=== PATIENT | female | born 1985 | race Caucasian/White ===

== ENCOUNTER 2025-02-24 21:37 | Inpatient (IN) | payer OTHER, SELFPAY ==
[2025-02-24 18:03] VITALS: BP 143/85
--- NOTE | 2025-02-24 18:41 | ED.GENMED ---
History of Present Illness
<Akiko Mcnamara PA-C - Last Filed: 02/25/25 01:11>
General
Chief Complaint: Skin Problem
Source: patient
Exam Limitations: none
Time Seen by Provider: 02/24/25 18:16
History of Present Illness
History of Present Illness:
39yoF with no significant past medical history presenting for evaluation of right thigh redness. Patient noticed what appeared to be an ingrown hair in her right inner thigh 4 days ago. She was seen at urgent care 3 days ago and was diagnosed with
a spider bite and started on Bactrim and Medrol dose pack. She has taken 5 doses of antibiotics thus far. Patient noticed some spreading redness today and went back to urgent care. She had blood work at [facility] and white count was 12 so she
was sent to the ED. She had some chills earlier today but has been monitoring her temperature and has not had a fever. No history of MRSA.
Phy Exam
<Akiko Mcnamara PA-C - Last Filed: 02/25/25 01:11>
General Physical Exam
General Presentation: well appearing and no apparent distress
General Skin: warm and dry
General Habitus: normal
General Mental: alert
ENT Exam
ENT Exam: normocephalic
Pulmonary Exam
Pulmonary Exam: no respiratory distress
Neurological Exam
Neurological Exam: alert
[place] Coma Scale
Eye Opening: Spontaneous
Verbal Response: Oriented
Motor Response: Obeys Commands
GCS Total Score: 15
Skin Exam
Skin Exam: redness, warmth and other (Large circular area of erythema/warmth to R inner thigh. There is a central indurated area with tenderness. No crepitus or pain out of proportion. )
Psychiatric Exam
Psychiatric Exam: normal mood/affect
<Fidelia Capellan MD - Last Filed: 02/24/25 22:09>
Amie Coma Scale
GCS Total Score: 15
Course
<Akiko Mcnamara PA-C - Last Filed: 02/25/25 01:11>
Orders/Labs/Results
Orders:
Orders
02/24/25 Dinner
Regular
At Your Request: Full Participation
Does patient need a safe tray?: No
02/24/25 19:03
0.9% Sodium Chloride 1000 ml [Nss] 1,000 ml IV BOLUS
Test Result ONCE
02/24/25 19:33
Complete Blood Count/With Diff Urgent
Comprehensive Metabolic Panel Urgent
HCG, Serum Qualitative Screen Urgent
Wound Culture [Wound/Abscess/Other Culture] Urgent
CADY Source: Abscess
Specimen Description:
Date Specimen was Collected: 02/24/25
Time Specimen was Collected: 19:19
Comment: R thigh
02/24/25 20:11
Vancomycin [Vancocin] 2,000 mg 0.9% Sodium Chloride 500 ml [Nss] 500 ml IV NOW
02/24/25 20:53
Admit/Transfer Patient As Directed
Co-Sign Provider:
Level of Care: Inpatient admission
Assign to:: Medical/Surgical
Physician / Group: Chirag
Diagnosis: Cellulitis
Reason for Hospitalization: IV abx
Expected length of stay greater than two midnights?: Yes
ELOS- Estimated Length of Stay in days: 3
I certify the patient meets the requirements for IP care: Yes
PRN Pain Medication Management As Directed
May give lesser potent ordered pain med per pt: Yes
preference::
Protocol:: Medication orders for pain may be administered in a
manner that supports deferring to patient preference
when the pt is:
- Requesting an ordered lesser potent pain medication.
Least to most potent pain medications are defined
as: acetaminophen < NSAID < tramadol < opioids
(morphine, oxycodone, hydromorphone).
- Requesting a lesser dose of the same medication IF
ORDERED.
- Requesting a less intrusive route of administration
if both routes are prescribed by the provider (PO <
IV).
02/24/25 20:54
Code Status As Directed
Resuscitation Status: Full Code
02/24/25 22:00
Flush (0.9% Sodium Chloride) [Flush (Nss)] See Dose Instructions IV PER PROTOCOL
02/24/25 22:11
Activity As Directed
Activity Level: Out of Bed-Early Mobility
Intake/ Output As Directed
Frequency: Per unit guidelines
Vital Signs As Directed
Frequency: Per unit guidelines
DX Deep Vein Thrombosis Video Routine
02/25/25 06:00
Basic Metabolic Panel IN AM
Complete Blood Count/No Diff IN AM
CeFAZolin 2 GRAM [Ancef] 2 grams in 10 ml IV Q8H
02/25/25 18:00
Enoxaparin Sodium [Lovenox] 40 mg SC QPM
Abnormal Lab Results
02/24/25
19:33
WBC 12.3 H 10^3/uL
(4.8-10.8)
Absolute Neuts (auto) 10.5 H 10^3/uL
(1.4-6.5)
Absolute Lymphs (auto) 1.1 L 10^3/uL
(1.2-3.4)
Neutrophils % 85.5 H %
(42.2-75.2)
Lymphocytes % 9.3 L %
(20.5-51.1)
Chloride 111 H mmol/L
(98-107)
Carbon Dioxide 20 L mmol/L
(22-30)
Glucose 114 H mg/dl
(70-99)
02/24/25 19:33
02/24/25 19:33
Vital Signs
Initial and Last Documented VS:
Initial Vital Signs
Temp Pulse Resp BP Pulse Ox
98.3 F 88 20 143/85 97
02/24/25 18:03 02/24/25 18:03 02/24/25 18:03 02/24/25 18:03 02/24/25 18:03
Last Documented Vital Signs
Temp Pulse Resp BP Pulse Ox
98.3 F 62 18 112/68 96
02/24/25 22:18 02/24/25 22:18 02/24/25 22:18 02/24/25 22:18 02/24/25 22:18
<Fidelia Capellan MD - Last Filed: 02/24/25 22:09>
Orders/Labs/Results
Orders:
Orders
02/24/25 Dinner
Regular
At Your Request: Full Participation
Does patient need a safe tray?: No
02/24/25 19:03
0.9% Sodium Chloride 1000 ml [Nss] 1,000 ml IV BOLUS
Test Result ONCE
02/24/25 19:33
Complete Blood Count/With Diff Urgent
Comprehensive Metabolic Panel Urgent
HCG, Serum Qualitative Screen Urgent
Wound Culture [Wound/Abscess/Other Culture] Urgent
CADY Source: Abscess
Specimen Description:
Date Specimen was Collected: 02/24/25
Time Specimen was Collected: 19:19
Comment: R thigh
02/24/25 20:11
Vancomycin [Vancocin] 2,000 mg 0.9% Sodium Chloride 500 ml [Nss] 500 ml IV NOW
02/24/25 20:53
Admit/Transfer Patient As Directed
Co-Sign Provider:
Level of Care: Inpatient admission
Assign to:: Medical/Surgical
Physician / Group: Chirag
Diagnosis: Cellulitis
Reason for Hospitalization: IV abx
Expected length of stay greater than two midnights?: Yes
ELOS- Estimated Length of Stay in days: 3
I certify the patient meets the requirements for IP care: Yes
PRN Pain Medication Management As Directed
May give lesser potent ordered pain med per pt: Yes
preference::
Protocol:: Medication orders for pain may be administered in a
manner that supports deferring to patient preference
when the pt is:
- Requesting an ordered lesser potent pain medication.
Least to most potent pain medications are defined
as: acetaminophen < NSAID < tramadol < opioids
(morphine, oxycodone, hydromorphone).
- Requesting a lesser dose of the same medication IF
ORDERED.
- Requesting a less intrusive route of administration
if both routes are prescribed by the provider (PO <
IV).
02/24/25 20:54
Code Status As Directed
Resuscitation Status: Full Code
02/24/25 22:00
Flush (0.9% Sodium Chloride) [Flush (Nss)] See Dose Instructions IV PER PROTOCOL
02/24/25 22:11
Activity As Directed
Activity Level: Out of Bed-Early Mobility
Intake/ Output As Directed
Frequency: Per unit guidelines
Vital Signs As Directed
Frequency: Per unit guidelines
DX Deep Vein Thrombosis Video Routine
02/25/25 06:00
Basic Metabolic Panel IN AM
Complete Blood Count/No Diff IN AM
CeFAZolin 2 GRAM [Ancef] 2 grams in 10 ml IV Q8H
02/25/25 18:00
Enoxaparin Sodium [Lovenox] 40 mg SC QPM
Abnormal Lab Results
02/24/25
19:33
WBC 12.3 H 10^3/uL
(4.8-10.8)
Absolute Neuts (auto) 10.5 H 10^3/uL
(1.4-6.5)
Absolute Lymphs (auto) 1.1 L 10^3/uL
(1.2-3.4)
Neutrophils % 85.5 H %
(42.2-75.2)
Lymphocytes % 9.3 L %
(20.5-51.1)
Chloride 111 H mmol/L
(98-107)
Carbon Dioxide 20 L mmol/L
(22-30)
Glucose 114 H mg/dl
(70-99)
02/24/25 19:33
02/24/25 19:33
Vital Signs
Initial and Last Documented VS:
Initial Vital Signs
Temp Pulse Resp BP Pulse Ox
98.3 F 88 20 143/85 97
02/24/25 18:03 02/24/25 18:03 02/24/25 18:03 02/24/25 18:03 02/24/25 18:03
Last Documented Vital Signs
Temp Pulse Resp BP Pulse Ox
98.3 F 62 18 112/68 96
02/24/25 22:18 02/24/25 22:18 02/24/25 22:18 02/24/25 22:18 02/24/25 22:18
Procedures
<Akiko Mcnamara PA-C - Last Filed: 02/25/25 01:11>
Incision/Drainage/Joint Aspiration
Right Medial Thigh:
Anethesia: 1% Lidocaine with Epi
Preparation: cleaned with Betadine
Type of procedure: incise and drain
Nature of site: abscess
Description of abscess: greater than 3cm
How much fluid was obtained?: scant amount
Fluid description: bloody
Treatment: left open for drainage, antibiotics started and bandaid applied
<Akiko Mcnamara PA-C - Last Filed: 02/25/25 01:11>
MDM/Problems Addressed
Differential Diagnosis Includes:
39yoF here for ongoing redness to R thigh. Started on Bactrim 3 days ago by urgent care for insect bite. Redness is now spreading. +Chills but denies fevers. VSS. She is well appearing in no distress. There is a large circular area of erythema to
the R inner thigh with central induration. Differential diagnosis includes but is not limited to: cellulitis, abscess, no clinical evidence of NSTI
I&D performed at bedside with mostly bloody output and small amount of purulence which was sent for culture. Labs show WBC of 12.3. Discussed options of trial of different PO antibiotic vs. admission for IV antibiotics. Patient prefers
hospitalization. IV vancomycin ordered and she was admitted to the hospitalist service for further care.
<Akiko Mcnamara PA-C - Last Filed: 02/25/25 01:11>
*Pulse Oximetry
SaO2: 97
Oxygen Mode of Delivery: Room air
Patient hypoxic: no (97%)
*Critical Care Note
Total Time (30-74mins, 75-104mins- exclusive of procedures): Not Applicable
ED Attending Note
<Akiko Mcnamara PA-C - Last Filed: 02/25/25 01:11>
-
Portions of this chart may have been created with voice recognition software.� Occasional wrong word or��sound alike� substitutions may have occurred due to the inherent limitations of voice recognition software.
<Fidelia Capellan MD - Last Filed: 02/24/25 22:09>
ED Attending Note
Patient seen and examined by attending physician: Yes
I performed the substantive portion of visit, reviewed & personally made and approve the management plan that is documented in note by myself or SAVAGE.: Yes
ED Attending Note:
I have seen and evaluated the patient with a [id number] encounter. I have spoken to the [SAVAGE] and involved in the medical history, the physical exam, medical decision making.
Evaluation and management service: agree unless noted differently below.
Results interpretation: agree unless noted differently below.
31-year-old woman presenting to the emergency department with concerns for skin infection. Few days ago she noticed a red spot to her inner thigh. Was started on Bactrim. Has been on it for 3 days. Noticed worsening redness despite being on it
as well as chills. During my evaluation patient is resting comfortably. She does have erythema and warmth to the right inner thigh. Concern for cellulitis. She did have a needle aspiration completed prior to my evaluation with some purulent
drainage. Given that patient failed outpatient antibiotics and is having chills we will bring her in for IV antibiotics.
Discharge Plan
Departure
Patient Disposition: Admit
Date of Disposition: 02/24/25
Time of Disposition: 20:30
Presentation/result/management discussed w/ accepting MD/DO: Hospitalist
Discharge Problem:
Cellulitis of right thigh
Interventions
Interventions:
*Risk Screen - Suicide Last Done: 02/24/25 22:16
*General Assessment Last Done: 02/24/25 18:03
*Neglect/Abuse Screening Last Done: 02/24/25 18:03
*ED- Fall Risk Assessment Last Done: 02/24/25 20:13
*ED COVID-19 Vaccine History Last Done: 02/24/25 20:13
*Nursing Disposition Last Done: 02/24/25 22:06
ED-Skin Assessment Last Done: 02/24/25 20:13
Discharge Date and Time
Discharge Date/Time: 02/24/25 22:06
[2025-02-24] MEDS: NSS 1000 IV (19:34)
[2025-02-24 19:42] LABS: % Basophils 0.2 % (0-2); % Immature Granulocytes 0.3 % (0-0.5); % Lymphocytes 9.3 % (20.5-51.1); % Monocytes 4.7 % (1.7-9.3); % Neutrophils 85.5 % (42.2-75.2); Absolute Lymphocytes 1.1 10^3/uL (1.2-3.4); Absolute Monocytes 0.6 10^3/uL (0.1-0.6); Absolute Neutrophils 10.5 10^3/uL (1.4-6.5); Hematocrit 41.8 % (37.0-47.0); Hemoglobin 14.5 g/dL (12.0-16.0); Mean Corp Hgb Conc. 34.7 g/dL (33.0-37.0); Mean Corpuscular Hgb 30.3 pg (27.0-31.0); Mean Corpuscular Volume 87.3 fL (81.0-99.0); Mean Platelet Volume 8.9 fL (7.4-10.4); Nucleated Red Blood Cells % 0 %; Platelet Count 263 10^3/uL (130-400); Red Blood Cell Count 4.79 10^6/uL (4.20-5.40); Red Cell Dist. Width 12.6 % (11.5-14.5); White Blood Cell Count 12.3 10^3/uL (4.8-10.8)
[2025-02-24 19:47] VITALS: BMI 34.9
[2025-02-24 20:00] LABS: HCG, Serum Qualitative Screen Negative
[2025-02-24 20:05] LABS: ALT (SGPT) 17 U/L (0-35); AST (SGOT) 18 U/L (14-36); Albumin 4.3 g/dl (3.5-5.0); Alkaline Phosphatase 71 U/L (38-126); Blood Urea Nitrogen 15 mg/dl (7-17); Calcium 9.2 mg/dl (8.4-10.2); Carbon Dioxide 20 mmol/L (22-30); Chloride 111 mmol/L (98-107); Estimated Creatinine Clearance 109 ml/min; Glucose 114 mg/dl (70-99); Potassium 4.6 mmol/L (3.5-5.1); Sodium 136 mmol/L (135-145); Total Bilirubin 0.4 mg/dl (0.2-1.3); eGFR > 60.00
[2025-02-24] MEDS: VANCOCIN 540 MG IV (20:52)
--- NOTE | 2025-02-24 20:56 | HPS.HSE ---
Addendum entered and electronically signed by Korey Beard DO 02/24/25 21:23:
Patient seen and examined independently. Agree with findings and plan as set forth by Any Vera PA-C.
Patient is a 39y F with no significant PMH who presents to ED complaining of pain and redness of the R thigh. Patient noted a small, itchy, red bump on the inner thigh on Friday. Friday the area began to become more painful. That evening she
noted increased redness ad swelling. The following morning the symptoms were progressed and patient presented to Urgent Care for evaluation. She was started on Bactrim and a steroid dose pack. Patient states that her symptoms have not improved
despite these medications. Last PM she had chills. Today she presented to the ED for further evaluation.
Ass:
Cellulitis
Plan:
Admit for further evaluation given failure of outpatient antibiotics.
IV Ancef for now and follow for clinical improvement.
Original Note:
Family Physician
-
Family Physician: Jesus Calhoun MD
Chief Complaint
-
Right Thigh Redness
History of Present Illness
Patient is a 39 y/o female without significant past medical history who presents with worsening redness of her right inner thigh. Patient initially noted an itchy small red bump on her right inner thigh 4 days ago. Over the next day the area
started to larger until the following day she noticed the area was more red with some bruising. She was seen at urgent care two days ago who started her on Bactrim and steroids. Patient reports no improvement with interventions. Today patient
developed chills which prompted her to return to urgent care who then sent her to the emergency department for evaluation.
Medical History
Past Medical History
Past Medical History: Reports None
Past Surgical History: Reports Other
Additional Past Surgical History:
Trigger Finger Release
Liver Resection
L4/L5 Fracture
Tonsillectomy
Ankle Surgery
Social History
Tobacco: Smoker (About 5 cigarettes per day)
Alcohol: Occasional
Drug: Marijuana (Occasionally)
Family History
Family History: Not pertinent
Allergies / Home Medications
Allergies reflects when Allergies were last updated in [facility].
Home Medications with original date entered in [facility]
Allergy/Medication List:
Allergies
Allergy/AdvReac Type Severity Reaction Status Date / Time
morphine Allergy Hives Verified 05/25/23 17:18
tramadol (From Ultram) Allergy Unknown Verified 05/25/23 17:18
Review of Systems
-
A 12 point ROS was completed and negative except as noted: Yes
Constitutional: Reports Chills; Denies Fever
Respiratory: Denies Cough or Trouble Breathing
Cardiac: Denies Chest Pain or Palpitations
Abdomen/GI: Denies Abdominal Pain, Nausea, Vomiting or Diarrhea
Physical Exam
Vital Signs
Vital Signs
Temp Pulse Resp BP Pulse Ox
98.3 F 88 20 143/85 97
02/24/25 18:03 02/24/25 18:03 02/24/25 18:03 02/24/25 18:03 02/24/25 18:43
Physical Exam
General: Comfortable and Conversant
HEENT: Anicteric and Moist mucous membranes
Respiratory: Clear and Non Labored Respirations
Cardiac: S1/S2 and Regular Rhythm
GI: Soft and Non Tender
Rectal: Deferred by Provider
Genito-urinary: Deferred by me
Musculoskeletal: No Clubbing and No Cyanosis
Skin: Warm, Dry and Other (Moderate erythema right inner thigh with increased warmth to touch)
Neuro: Awake, Alert, Oriented and Nonfocal/grossly intact
Psych: Calm
Laboratory Results
-
02/24/25 19:33
02/24/25 19:33
Laboratory Results
Total Bilirubin 0.4 mg/dl (0.2-1.3) 06/26/25 19:33
AST 18 U/L (14-36) 02/24/25 19:33
ALT 17 U/L (0-35) 02/24/25 19:33
Alkaline Phosphatase 71 U/L (38-126) 02/24/25 19:33
Data Reviewed
-
Lab Data: Labs Reviewed by me
Impression/Plan
-
Right Medial Thigh Cellulitis, failed outpatient antibiotics
-Patient with more systemic symptoms including leukocytosis and reported chills despite Bactrim as outpatient
-Transition to Ancef
DVT proph: Lovenox
Code Status: Full Code
[2025-02-24 22:18] VITALS: BP 112/68; BMI 35.2
[2025-02-24] MEDS: TYLENOL 650 MG PO (22:35)
[2025-02-25] MEDS: BENADRYL 25 MG PO (00:40)
[2025-02-25] MEDS: ANCEF 10 IV ×3 (05:47→21:04)
[2025-02-25 07:01] VITALS: BP 102/63
[2025-02-25 07:53] LABS: Hematocrit 39.8 % (37.0-47.0); Hemoglobin 13.4 g/dL (12.0-16.0); Mean Corp Hgb Conc. 33.7 g/dL (33.0-37.0); Mean Corpuscular Hgb 29.8 pg (27.0-31.0); Mean Corpuscular Volume 88.6 fL (81.0-99.0); Platelet Count 219 10^3/uL (130-400); Red Blood Cell Count 4.49 10^6/uL (4.20-5.40); Red Cell Dist. Width 12.7 % (11.5-14.5); White Blood Cell Count 10.7 10^3/uL (4.8-10.8)
[2025-02-25 08:23] LABS: Blood Urea Nitrogen 9 mg/dl (7-17); Calcium 8.7 mg/dl (8.4-10.2); Carbon Dioxide 21 mmol/L (22-30); Chloride 113 mmol/L (98-107); Estimated Creatinine Clearance > 125 ml/min; Glucose 87 mg/dl (70-99); Sodium 140 mmol/L (135-145); eGFR > 60.00
[2025-02-25] MEDS: TYLENOL 650 MG PO ×3 (08:31→20:38)
--- NOTE | 2025-02-25 11:26 | W.PN.HOSP.TC ---
Today's Communication/Plan
-
MRSA swab
Continue cefazolin
Assessment / Plan
Assessment / Plan
Gen-AAOx3, NAD
HEENT-NC, AT, anicteric, clear oral mm
Neck-supple
CV-reg, no M, +S1/S2
Lungs-clear B/L
Abd-soft, NT, ND
Ext-no edema
Musculoskeletal-no cyanosis, clubbing
Skin-warm and dry, improving redness and swelling right medial thigh, redness is regressing compared to area that was circled on exam
Neuro-grossly non-focal
Psych-calm, cooperative
Right medial thigh cellulitis -clinically improving on IV cefazolin. Leukocytosis improved. Afebrile. No evidence of sepsis. She did have chills at home several days ago, denies fevers.
She went to urgent care earlier this week and was started on Bactrim and a Medrol Dosepak.
In the emergency room last night the area was incised without much drainage, mostly bloody according to patient.
Check MRSA swab. She denies history of MRSA infection. Denies history of cellulitis. She is unsure if this started from an insect bite.
Obesity due to excess calories
Full code
Anticipated Discharge: Within 24 hours
Subjective/Interval History
-
Date of Service: February 25, 2025
Patient seen and examined. States her right leg is improving in terms of redness and pain. No other complaints.
Objective Data
-
Labs:
Laboratory Results
02/25/25
07:23
WBC 10.7
Hgb 13.4
Hct 39.8
Plt Count 219
Sodium 140
Potassium 4.0
Chloride 113 H
Carbon Dioxide 21 L
BUN 9
Creatinine 0.5 L
Glucose 87
Calcium 8.7
Vital Signs:
Vital Signs
Temp Pulse Resp BP Pulse Ox
98.4 F 60 18 102/63 100
02/25/25 07:01 02/25/25 07:01 02/25/25 07:01 02/25/25 07:01 02/25/25 07:01
I&O
02/24/25 02/25/25 02/26/25
06:59 06:59 06:59
Intake Total 0 / 0
Balance 0 / 0
Review of Systems
-
History Source: Patient
All other systems: Reviewed and negative
--- NOTE | 2025-02-25 11:49 | CM ---
Patient seen bedside, initial assessment completed. Patient is a 39y F with no significant PMH who presents to ED complaining of pain and redness of the R thigh.
Patient resides w/ daughter in a 2nd flr apartment, 10 steps to get to front door. Patient is independent in all areas, no DME. No recent therapy hx, OP therapy in the past.
Address, point of contact and insurance verified
PCP: Jesus Calhoun
Pharmacy: [facility]
Plan: Home, no needs likely
[2025-02-25] MEDS: FLUSH (NSS) 2 FLUSH IV (13:34)
[2025-02-25 15:49] VITALS: BP 131/69
[2025-02-25] MEDS: PROTONIX 40 MG PO (16:52)
[2025-02-25] MEDS: LOVENOX 40 MG SC (18:19)
[2025-02-25 23:20] VITALS: BP 118/71
[2025-02-26] MEDS: ANCEF 10 IV ×2 (05:11→13:27)
[2025-02-26 07:36] VITALS: BP 109/67
[2025-02-26] MEDS: PROTONIX 40 MG PO (09:28)
--- NOTE | 2025-02-26 10:30 | PTCARENOTE ---
Pt's wound culture came back positive for MRSA. Made Dr. Treadwell aware. Pt placed on Contact Precautions and educated pt on Contact Precautions.
--- NOTE | 2025-02-26 10:39 | W.PN.HOSP.TC ---
Today's Communication/Plan
-
Discharge
Assessment / Plan
Assessment / Plan
Gen-AAOx3, NAD
HEENT-NC, AT, anicteric, clear oral mm
Neck-supple
CV-reg, no M, +S1/S2
Lungs-clear B/L
Abd-soft, NT, ND
Ext-no edema
Musculoskeletal-no cyanosis, clubbing
Skin-warm and dry, improving redness and swelling right medial thigh, redness is regressing compared to area that was circled on exam, mild drainage from wound on dressing
Neuro-grossly non-focal
Psych-calm, cooperative
Right medial thigh cellulitis -clinically improving on IV cefazolin. Leukocytosis improved. Afebrile. No evidence of sepsis. She did have chills at home several days ago, denies fevers.
She went to urgent care earlier this week and was started on Bactrim and a Medrol Dosepak.
In the emergency room last night the area was incised without much drainage, mostly bloody according to patient.
Wound culture does show MRSA.
Can discharge on Bactrim and cephalexin. Follow-up with PCP on Friday. Give a dose of Bactrim now.
Obesity due to excess calories -weight loss encouraged.
Full code
Dispo -stable for discharge home today.
32 minutes spent in discharge process.
Anticipated Discharge: Today
Subjective/Interval History
-
Date of Service: February 26, 2025
Patient seen and examined. No complaints. Eager to go home.
Objective Data
-
Vital Signs:
Vital Signs
Temp Pulse Resp BP Pulse Ox
98.4 F 56 16 109/67 98
02/26/25 07:36 02/26/25 07:36 02/26/25 07:36 02/26/25 07:36 02/26/25 07:36
I&O
02/25/25 02/26/25 02/27/25
06:59 06:59 06:59
Intake Total 0 / 0 1200 / 1200 320 / 320
Balance 0 / 0 1200 / 1200 320 / 320
Review of Systems
-
History Source: Patient
All other systems: Reviewed and negative
--- NOTE | 2025-02-26 10:42 | W.DS.TRANS ---
DC Summary - Manager Salt
-
Discharge Instructions:
Discharge Diagnosis/Procedures Right thigh cellulitis with abscess
Diet Low Cholesterol,Low Fat
Activity As tolerated
Driving Restrictions As prior to admission
Bathing Restrictions None
Instructions:
Stand-Alone Forms:
Changes to Home Medications: No
Discharge Medications:
DC Medications w/original date entered in [employer]
ibuprofen 200 mg tablet (Advil) 400 mg PO BIDPRN PRN mild pain 02/24/25
omeprazole 20 mg tablet,delayed release 20 - 40 mg PO BIDPRN PRN gerd 02/24/25
sulfamethoxazole 800 mg-trimethoprim 160 mg tablet 1 tab PO BID Infection 02/24/25
cephalexin 500 mg capsule 500 mg PO QID #28 caps 02/26/25
Home Medication Changes
Pending Results: No
[2025-02-26] MEDS: BACTRIM DS 800 MG/160 MG 1 TABLET PO (11:34)
[2025-02-26 13:19] VITALS: BP 116/71
[2025-02-26] MEDS: FLUSH (NSS) 2 FLUSH IV (13:27)
== END 2025-02-26 13:44 | disposition home or self-care (01) | DRG 603 ==
LOC: 4 EAST ACU 21:37
PROVIDERS: Physician Assistant; Physician Assistant Medical; ADMITTING PHYSICIAN Hospitalist; ATTENDING PHYSICIAN Hospitalist; EMERGENCY PHYSICIAN Student in an Organized Health Care Education/Training Program; FAMILY PHYSICIAN Family Medicine
DX: L03.115 Cellulitis of right lower limb (principal); F17.210 Nicotine dependence, cigarettes, uncomplicated; E66.09 Other obesity due to excess calories; Z68.35 Body mass index [BMI] 35.0-35.9, adult; L02.415 Cutaneous abscess of right lower limb
CPT/HCPCS: 10060; 80048; 80053; 84703; 85025; 85027; 87070; 87147; 87186; 87205; 96361; 96365; 99285; 99406

== ENCOUNTER 2025-04-18 09:18 | Emergency (ER) | payer OTHER, SELFPAY ==
[2025-04-18 09:20] VITALS: BP 131/81
--- NOTE | 2025-04-18 11:21 | ED.GENMED ---
History of Present Illness
General
Chief Complaint: Skin Problem
Time Seen by Provider: 04/18/25 11:05
History of Present Illness
History of Present Illness:
40-year-old female with history of known MRSA presents to the emergency department for evaluation of abdominal redness and discomfort for the past 2 to 3 days. She was admitted to this hospital earlier this summer for cellulitis and abscess which
was ultimately proven to be MRSA by culture. States symptoms feel similar. Denies trauma to the area. No fevers or chills. Denies IV drug abuse
Review of Systems
Review of Systems
Allergies reviewed?: Yes
All Other Systems: ROS reviewed and negative except as documented in HPI and ROS
Phy Exam
Physical Exam
Physical Exam:
GEN: Well appearing, NAD, WDWN
HEENT: Oral mucosa moist, no scleral icterus
Cardiac: Regular rate
Lung: No respiratory distress, no tachypnea
Abdomen: Patchy erythema with mild induration to the suprapubic abdomen, no associated inguinal adenopathy
MSK: No gross deformity or injuries
Skin: Good color, no pallor or jaundice, no rashes
Neuro: AO x3, moves all extremities freely
Psych: Calm, cooperative
Course
Vital Signs
Initial and Last Documented VS:
Initial Vital Signs
Temp Pulse Resp BP Pulse Ox
98.5 F 94 16 131/81 97
04/18/25 09:20 04/18/25 09:20 04/18/25 09:20 04/18/25 09:20 04/18/25 09:20
Last Documented Vital Signs
Temp Pulse Resp BP Pulse Ox
98.5 F 94 16 131/81 97
04/18/25 09:20 04/18/25 09:20 04/18/25 09:20 04/18/25 09:20 04/18/25 11:23
MDM/Problems Addressed
MDM/Problems Addressed:
Limited bedside ultrasound performed by myself shows no evidence for fluid collection. Will start antibiotics based on prior culture results
*Pulse Oximetry
SaO2: 97
Oxygen Mode of Delivery: Room air
Patient hypoxic: no
*Critical Care Note
Total Time (30-74mins, 75-104mins- exclusive of procedures): Not Applicable
ED Attending Note
-
Portions of this chart may have been created with voice recognition software.� Occasional wrong word or��sound alike� substitutions may have occurred due to the inherent limitations of voice recognition software.
Discharge Plan
Departure
Patient Disposition: Home (Routine Discharge)
Date of Disposition: 04/18/25
Time of Disposition: 11:22
Patient with high blood pressure during this ER visit?: No
Discharge Problem:
Abdominal wall cellulitis
Instructions: Cellulitis (Skin Infection), Adult (DC)
Prescriptions:
New
sulfamethoxazole-trimethoprim [Bactrim DS] 800-160 mg tablet
1 tab PO Q12H Qty: 20 0RF
No Action
sulfamethoxazole-trimethoprim 800-160 mg tablet
1 tab PO BID
Patient Comments:
02/24/2025, filled on 02/22/2025 and instructed to take 1 tablet BID for 7 days.
ibuprofen [Advil] 200 mg Tablet
400 mg PO BIDPRN PRN (Reason: mild pain)
omeprazole 20 mg Tablet,Delayed Release (Dr/Ec)
20 - 40 mg PO BIDPRN PRN (Reason: gerd)
cephalexin 500 mg capsule
500 mg PO QID Qty: 28 0RF
Referrals:
Jesus Calhoun MD [Family Provider, Family Practice]
Interventions
Interventions:
*Nursing Disposition Last Done: 04/18/25 11:46
Discharge Date and Time
Discharge Date/Time: 04/18/25 11:47
Print Language: [id number]
== END 2025-04-18 11:47 | disposition home or self-care (01) ==
LOC: EMR 09:18
PROVIDERS: EMERGENCY PHYSICIAN Emergency Medicine; FAMILY PHYSICIAN Family Medicine
DX: L03.311 Cellulitis of abdominal wall (principal)
CPT/HCPCS: 99282

== ENCOUNTER 2025-04-22 01:38 | Inpatient (IN) | payer OTHER, SELFPAY ==
[2025-04-21 16:54] VITALS: BP 136/80
--- NOTE | 2025-04-21 21:23 | ED.GENMED ---
History of Present Illness
General
Chief Complaint: Skin Problem
Time Seen by Provider: 04/21/25 21:23
History of Present Illness
History of Present Illness:
PAST MEDICAL HISTORY AND REVIEW OF OLD RECORDS
- I reviewed records, she has a history of obesity and the patient had a LEEP procedure in the past and also had a liver resection in 2011. I reviewed the records, the patient was admitted here this past January with right medial thigh cellulitis with
abscess. She was seen here 3 days ago and was started on antibiotics for abdominal wall cellulitis. She was placed on Bactrim.
Note:
CHIEF COMPLAINT(S)
Swelling and induration in the skin
HISTORY OF PRESENT ILLNESS
The patient is a 40-year-old female presenting with complaints of increased swelling, firmness, and tenderness in an area on her skin. She notes that the area appeared darker and harder compared to a prior visit. Initially, the area was itchy but
not painful; however, it now presents significant burning pain upon touch. The patient reports that the swelling had spread significantly at one point but has since retreated, though the area remains larger and firmer than previously. The patient
denies any recent fever; although she experienced a slight fever of 99.9�F within the last few days, her typical baseline temperature is 97.3�F. The patient managed this with acetaminophen, which alleviated her symptoms. Previously, an ultrasound
was performed by another provider, with no obvious abscess identified at that time. Upon examination, due to the fear of a possible abscess, numbing medication and incision are considered for the patients firm, indurated area on the skin.
REVIEW OF SYSTEMS
- Skin: Swelling, induration, increased tenderness, pain upon touch, initial itchiness.
- General: Experienced a mild fever, managed with acetaminophen.
PHYSICAL EXAM
General: Alert, in mild distress.
Skin: Firm and indurated in the anterior abdominal wall of the right lower quadrant, increased tenderness upon palpation.
Neck: Supple, trachea midline.
Cardiovascular: Normal peripheral perfusion, no edema.
Respiratory: Respirations are non-labored.
Gastrointestinal: Abdomen nondistended. There is focal tenderness only over the indurated region of the right lower quadrant of the abdominal wall
Back: Normal range of motion, normal alignment.
Musculoskeletal: Normal range of motion, normal strength.
Neurological: Alert and oriented to person, place, time, and situation, no focal neurological deficit observed.
Psychiatric: Cooperative, appropriate mood & affect.
PLAN
- Application of numbing medication to the affected area followed by incision to evaluate for an abscess.
- Monitor for any significant discharge and send for analysis if present.
- Follow-up as needed based on response to intervention and presence of any abscess.
DIFFERENTIAL DIAGNOSIS
The Differential Diagnosis includes, in no particular order and is not limited to:
1. Abscess
2. Cellulitis
3. Dermatitis
4. Hidradenitis suppurativa
5. Folliculitis
6. Lymphadenitis
7. Erythema nodosum
8. Insect bite reaction
9. Deep vein thrombosis (if leg is affected)
10. Contact dermatitis
RADIOLOGY
- CT imaging suggests phlegmon right lower abdominal wall with possible developing abscess
LABS
- White count 11.3
UPDATE
- SUMMARY OF ENCOUNTER
The patient, a 40-year-old female, was seen in the emergency department due to increased swelling, firmness, and tenderness in an area on her skin. The swelling had previously been evaluated, and there was concern for a potential abscess based on
increased firmness and tenderness. During the visit, an incision was made to explore for an abscess, but no significant discharge was obtained from the site. The patient has been on oral antibiotics, but due to insufficient improvement and a
slightly elevated white blood cell count of 11.3, which suggests infection, the decision was made to consider intravenous antibiotic therapy. The radiologist suspected a developing abscess based on imaging results.
ASSESSMENT
Inflamed tissue suspected to be developing into an abscess, accompanied by slightly elevated white blood cell count indicative of infection.
EMERGENCY TREATMENTS ADMINISTERED
Incision at the site of induration to explore for abscess formation.
MANAGEMENT OF THE PATIENTS CARE WAS DISCUSSED WITH
Plan was discussed with the hospitalist to consider admission for intravenous antibiotic therapy.
PLAN
Admission to the hospital for administration of intravenous antibiotics to treat suspected infection and potential abscess formation. The incision will be monitored for any discharge that could confirm abscess development.
PROCEDURES
Incision made at the site of skin induration to evaluate for an abscess.
MEDICATION RECONCILIATION
Patient has been on oral antibiotics prior to this visit, intravenous antibiotics to be initiated upon admission.
MEDICAL DECISION MAKING
-Complexity of Data Reviewed: Differential diagnosis includes abscess, cellulitis, dermatitis, hidradenitis suppurativa, folliculitis, lymphadenitis, erythema nodosum, insect bite reaction, deep vein thrombosis (if leg is affected), and contact
dermatitis.
-Data:
Category 1
External records reviewed: Review of non-improving symptoms despite appropriate oral antibiotic therapy.
Category 3
Discussion of management with hospitalists to decide on admission for intravenous antibiotics due to the suspected abscess and slight leukocytosis.
-Risk: Admission for intravenous antibiotic therapy considered due to risk of complications from untreated or inadequately treated infection.
DIAGNOSIS
Suspected developing skin abscess, ICD-10: L02.91.
Phy Exam
Physical Exam
Physical Exam:
See HPI
Course
Orders/Labs/Results
Orders:
Orders
04/21/25 21:22
IV Insert/Care/Rem.- Treatment PRN
O2 Therapy [RESP] Urgent
Titrate/Wean O2 to maintain O2 sat greater than (%): 93
Special Instructions: TO MAINTAIN CONTINUOUS O2 SATS > OR = 93%
Pulse Ox/cont/shift [RESP] Urgent
Quantity: 1
Special Instructions: CONTINUOUS
04/21/25 21:25
Complete Blood Count/With Diff Urgent
Comprehensive Metabolic Panel Urgent
HCG, Serum Qualitative Screen Urgent
Lactic Acid Q4H
Comment: ON ICE, CANCEL 2ND ORDER IF FIRST LACTIC ACID LEVEL <2
Blood Culture Q20M
CADY Source: Blood/Venous
Specimen Description:
Comment: Urgent from separate sites. If patient screens positive for possible sepsis
Blood Culture Q20M
CADY Source: Blood/Venous
Specimen Description:
Comment: Urgent from separate sites. If patient screens positive for possible sepsis
04/21/25 21:38
Add On- LAB Urgent
Tests Added?: hcg qual
CT Abd/Pel (IV only)-DH only Urgent
Comment:
Reason For Exam: eval abscess vs phlegmon right lower abd wall
04/21/25 21:39
Ketorolac [Toradol] 15 mg IV NOW STA
04/21/25 21:47
Diphenhydramine [Benadryl] 25 mg IV NOW STA
04/21/25 21:55
Vancomycin [Vancocin] 2,000 mg 0.9% Sodium Chloride 500 ml [Nss] 500 ml IV NOW
04/22/25 01:30
Lactic Acid Q4H
Comment: ON ICE, CANCEL 2ND ORDER IF FIRST LACTIC ACID LEVEL <2
Abnormal Lab Results
04/21/25
21:25
WBC 11.3 H 10^3/uL
(4.8-10.8)
Absolute Neuts (auto) 7.6 H 10^3/uL
(1.4-6.5)
Absolute Monos (auto) 0.8 H 10^3/uL
(0.1-0.6)
Glucose 101 H mg/dl
(70-99)
Lactic Acid < 0.5 L mmol/L
(0.7-2.0)
04/21/25 21:25
04/21/25 21:25
Vital Signs
Initial and Last Documented VS:
Initial Vital Signs
Temp Pulse Resp BP Pulse Ox
36.9 C 93 16 136/80 99
04/21/25 16:54 04/21/25 16:54 04/21/25 16:54 04/21/25 16:54 04/21/25 16:54
Last Documented Vital Signs
Temp Pulse Resp BP Pulse Ox
36.9 C 87 18 95/58 98
04/21/25 23:13 04/21/25 23:13 04/21/25 21:34 04/21/25 23:13 04/21/25 23:13
Procedures
Incision/Drainage/Joint Aspiration
Right Lower Anterior Abdomen:
Anethesia: 1% Lidocaine with Epi
Preparation: other (Chlorhexidine)
Type of procedure: incise and drain
Nature of site: abscess
Description of abscess: greater than 3cm
Loculations broken up: No
How much fluid was obtained?: none
Treatment: left open for drainage
*Pulse Oximetry
SaO2: 99
Oxygen Mode of Delivery: Room air
Patient hypoxic: no
*Critical Care Note
Total Time (30-74mins, 75-104mins- exclusive of procedures): Not Applicable
ED Attending Note
-
Portions of this chart may have been created with voice recognition software.� Occasional wrong word or��sound alike� substitutions may have occurred due to the inherent limitations of voice recognition software.
Discharge Plan
Departure
Prescriptions:
No Action
omeprazole 20 mg Tablet,Delayed Release (Dr/Ec)
20 - 40 mg PO DAILY
sulfamethoxazole-trimethoprim [Bactrim DS] 800-160 mg tablet
1 tab PO Q12H Qty: 20 0RF
Referrals:
Jesus Calhoun MD [Family Provider, Family Practice]
Interventions
Interventions:
*Risk Screen - Suicide Last Done: 04/21/25 16:55
*General Assessment Last Done: 04/21/25 21:15
*Neglect/Abuse Screening Last Done: 04/21/25 16:55
*ED- Fall Risk Assessment Last Done: 04/21/25 21:15
*ED COVID-19 Vaccine History Last Done: 04/21/25 21:15
ED-Skin Assessment Last Done: 04/21/25 21:33
Discharge Date and Time
Print Language: SWEDISH
[2025-04-21 21:30] VITALS: BMI 35.8
[2025-04-21 21:31] VITALS: BP 112/70
[2025-04-21 21:34] VITALS: BP 112/70
[2025-04-21 21:36] LABS: Hematocrit 39.9 % (37.0-47.0); Hemoglobin 13.5 g/dL (12.0-16.0); Mean Corp Hgb Conc. 33.8 g/dL (33.0-37.0); Mean Corpuscular Volume 88.3 fL (81.0-99.0); Nucleated Red Blood Cells % 0 %; Platelet Count 267 10^3/uL (130-400); Red Cell Dist. Width 12.2 % (11.5-14.5)
[2025-04-21] MEDS: TORADOL 15 MG IV (21:43)
[2025-04-21 21:51] LABS: HCG, Serum Qualitative Screen Negative
[2025-04-21 21:56] LABS: ALT (SGPT) 13 U/L (0-35); AST (SGOT) 15 U/L (14-36); Albumin 3.9 g/dl (3.5-5.0); Alkaline Phosphatase 62 U/L (38-126); Blood Urea Nitrogen 15 mg/dl (7-17); Calcium 9.3 mg/dl (8.4-10.2); Carbon Dioxide 23 mmol/L (22-30); Chloride 107 mmol/L (98-107); Estimated Creatinine Clearance 109 ml/min; Glucose 101 mg/dl (70-99); Potassium 4.0 mmol/L (3.5-5.1); Sodium 137 mmol/L (135-145); Total Protein 6.7 g/dl (6.3-8.2); eGFR > 60.00
[2025-04-21 22:00] VITALS: BP 100/60
[2025-04-21] MEDS: BENADRYL 25 MG IV (22:08)
[2025-04-21] MEDS: VANCOCIN 540 MG IV (22:09)
[2025-04-21 23:13] VITALS: BP 95/58
[2025-04-22] MEDS: BENADRYL 25 MG IV (00:41)
--- NOTE | 2025-04-22 01:13 | HPS.HSE ---
Family Physician
-
Family Physician: Jesus Calhoun MD
Chief Complaint
-
Pain / redness abdominal wall.
History of Present Illness
Patient is a 40y F with PMH significant for MRSA cellulitis in January who presents to ED complaining of redness and pain of the abdominal wall for the past week or so. Patient noted a small 'bump' on the lower abdomen about one week ago. Since
that time she has developed surrounding redness, pain and swelling. She was seen here in the ED two days ago where POC US showed no evidence of fluid collection / abscess. She was discharged to home on Bactrim DS BID; however, her symptoms have
only progressed since that time.
Patient was admitted for R thigh cellulitis in January. Cultures were taken at that time which were positive for MRSA. She has no other prior h/o MRSA infections.
Medical History
Past Medical History
Past Medical History: Reports Other
Additional Past Medical History:
Liver Lesion / Adenoma
MRSA (January 2025)
Past Surgical History: Reports Other
Additional Past Surgical History:
Trigger Finger Release
Partial Liver Resection
L4/L5 Fracture
Tonsillectomy
Ankle Surgery
Social History
Tobacco: Smoker (About 5 cigarettes per day)
Alcohol: Occasional
Drug: Marijuana (Occasionally)
Family History
Family History: Not pertinent
Allergies / Home Medications
Allergies reflects when Allergies were last updated in [facility].
Home Medications with original date entered in [facility]
Allergy/Medication List:
Allergies
Allergy/AdvReac Type Severity Reaction Status Date / Time
morphine Allergy Hives Verified 04/18/25 09:23
tramadol (From Ultram) Allergy Unknown Verified 04/18/25 09:23
Home Medications
omeprazole 20 mg tablet,delayed release 20 - 40 mg PO DAILY 02/24/25
sulfamethoxazole 800 mg-trimethoprim 160 mg tablet (Bactrim DS) 1 tab PO Q12H #20 tabs 04/18/25
Review of Systems
-
History Source: Patient
A 12 point ROS was completed and negative except as noted: Yes
Constitutional: Denies Fever or Chills
Respiratory: Denies Cough or Trouble Breathing
Cardiac: Denies Chest Pain or Palpitations
Abdomen/GI: Reports Abdominal Pain; Denies Nausea, Vomiting or Diarrhea
Musculoskeletal: Denies Joint Pain or Edema
Skin: Reports Other (redness / pain)
Psych: Denies Depression or Anxiety
Physical Exam
Vital Signs
Vital Signs
Temp Pulse Resp BP Pulse Ox
98.4 F 87 18 95/58 98
04/21/25 23:13 04/21/25 23:13 04/21/25 21:34 04/21/25 23:13 04/21/25 23:13
Physical Exam
General: Other (40y F in no acute distress.)
HEENT: Moist mucous membranes
Respiratory: Clear; No Wheezes, Rales or Rhonchi
Cardiac: S1/S2 and Regular Rhythm; No Murmur
GI: Soft, Non Distended and Normal Bowel Sounds
Musculoskeletal: No Clubbing, No Cyanosis and No Edema
Skin: Other (Erythema and increased warmth across the lower abdomen. Dressing in place over incision made here in the ED this evening.)
Neuro: AO x 3
Laboratory Results
-
04/21/25 21:25
04/21/25 21:25
Laboratory Results
Lactic Acid Cancelled 04/22/25 01:30
Total Bilirubin 0.3 mg/dl (0.2-1.3) 04/21/25 21:25
AST 15 U/L (14-36) 04/21/25 21:25
ALT 13 U/L (0-35) 04/21/25 21:25
Alkaline Phosphatase 62 U/L (38-126) 04/21/25 21:25
Impression/Plan
-
A/P: Patient is a 40y F with PMH significant for MRSA cellulitis / abscess in January who presents to ED complaining of abdominal wall pain, swelling and redness for about one week.
Abdominal Wall Cellulitis / Abscess
- Admit for further evaluation and treatment.
- Suspect MRSA abscess / cellulitis given prior / recent history.
- IV vancomycin for now.
- Follow-up any available culture data (no significant fluid obtained with attempted I&D in the ED this evening).
- Follow for clinical improvement.
- ID evaluation for additional recommendations / strategies for future prevention, etc.
- Consider Surgery eval for drainage if no significant improvement with abx alone.
DVT Prophylaxis: Lovenox
Code Status: Full
--- NOTE | 2025-04-22 02:02 | PTCARENOTE ---
Pt arrived to floor on stretcher from ED. Pt ambulated to bed without issue. Right lower abdomen redness and swelling with diffuse redness extending to R flank and back. Pt reports 2/10 RLQ pain that worsens with movement and posture change.
Denies N/V/D; VSS; Pt oriented to room, call robins within reach. Will continue to monitor and assess.
[2025-04-22 02:06] VITALS: BP 104/70; BMI 35.8
[2025-04-22 07:29] LABS: Hematocrit 39.3 % (37.0-47.0); Hemoglobin 13.3 g/dL (12.0-16.0); Mean Corp Hgb Conc. 33.8 g/dL (33.0-37.0); Mean Corpuscular Volume 88.9 fL (81.0-99.0); Platelet Count 257 10^3/uL (130-400); Red Cell Dist. Width 12.2 % (11.5-14.5)
--- NOTE | 2025-04-22 07:47 | W.PN.HOSP.TC ---
Today's Communication/Plan
-
Continue IV Vanco
Assessment / Plan
Assessment / Plan
Impression:
Patient is a 40y F with PMH significant for MRSA cellulitis in January who presents to ED complaining of redness and pain of the abdominal wall for the past week or so. Patient noted a small 'bump' on the lower abdomen about one week ago. Since
that time she has developed surrounding redness, pain and swelling. She was seen here in the ED two days ago where POC US showed no evidence of fluid collection / abscess. She was discharged to home on Bactrim DS BID; however, her symptoms have
only progressed since that time.
Patient was admitted for R thigh cellulitis in January. Cultures were taken at that time which were positive for MRSA. She has no other prior h/o MRSA infections.
Assessment/plan:
Abdominal Wall Cellulitis / Abscess
- Admit for further evaluation and treatment.
- Suspect MRSA abscess / cellulitis given prior / recent history.
- IV vancomycin for now.
- Follow-up any available culture data (no significant fluid obtained with attempted I&D in the ED this evening).
- Follow for clinical improvement.
- ID evaluation for additional recommendations / strategies for future prevention, etc.
- Consider Surgery eval for drainage if no significant improvement with abx alone.
Sepsis secondary to cellulitis.
Meets sepsis criteria with leukocytosis and tachycardia above 90.
Continue antibiotics.
Obesity BMI 35.8
CODE STATUS: Full code
DVT prophylaxis: Lovenox
Diet: Regular diet
Disposition: Continue IV Vanco
Total time spent on today's encounter was 65 minutes which included time spent in counseling the patient/family regarding diagnosis and treatment plan as listed above, goals of care, and symptom management. Case was discussed with nursing staff,
specialists, and care coordinators/case management. All labs and imaging personally reviewed by me. Remainder the time spent in detailed review of previous records, lab data, imaging, and other medical provider documentation.
Anticipated Discharge: Within 24 hours
Subjective/Interval History
-
Date of Service: April 22, 2025
Patient seen and examined at bedside, denies any chest pain or shortness of breath, no abdominal pain, no nausea, no vomiting, no diarrhea or constipation.
Objective Data
-
Labs:
Laboratory Results
04/21/25 04/22/25
: 06:40
WBC 11.3 H 11.2 H
Hgb 13.5 13.3
Hct 39.9 39.3
Plt Count 267 257
Sodium 137 Pending
Potassium 4.0 Pending
Chloride 107 Pending
Carbon Dioxide 23 Pending
BUN 15 Pending
Creatinine 0.8 Pending
Glucose 101 H Pending
Calcium 9.3 Pending
Total Bilirubin 0.3
AST 15
ALT 13
Alkaline Phosphatase 62
Vital Signs:
Vital Signs
Temp Pulse Resp BP Pulse Ox
98.5 F 86 18 104/70 98
04/22/25 02:06 04/22/25 02:06 04/22/25 02:06 04/22/25 02:06 04/22/25 06:39
I&O
04/21/25 04/22/25 04/23/25
06:59 06:59 06:59
Intake Total 240 / 240
Balance 240 / 240
Physical Exam
-
General: Well Developed, Well Nourished, No Apparent Distress and Comfortable
HEENT: Normocephalic, Atraumatic, Moist Mucous Membranes, No Ptosis, PERRLA and Nose Appears Normal
Respiratory: Clear to Auscultation and Non Labored Respirations
Cardiac: Regular Rhythm and S1/S2
Breast: Deferred by me
GI: Soft, Nontender, Nondistended, Normal Bowel Sounds, Tender and Other (Abdominal wall redness and tenderness)
Genito-urinary: No Costovertebral Tender
Musculoskeletal: No Clubbing, No Cyanosis and No Edema
Skin: Other (Abdominal wall redness)
Neuro: Awake, Alert, Oriented, AO x 3 and No Motor Deficits
Psych: Calm
Data Reviewed
-
Diagnostic Radiology: Image personally visualized and interpreted and Report Reviewed by me
CT Scan: Image personally visualized and interpreted and Report Reviewed by me
Ultrasound: Image personally visualized and interpreted and Report Reviewed by me
MRI: Image personally visualized and interpreted and Report Reviewed by me
Medical Tests (Nuc Med, Echo etc): Image personally visualized and interpreted and Report Reviewed by me
Labs: Labs Reviewed by me
Old Records: Reviewed
[2025-04-22 07:48] VITALS: BP 100/58
[2025-04-22 07:54] LABS: Blood Urea Nitrogen 18 mg/dl (7-17); Calcium 8.5 mg/dl (8.4-10.2); Carbon Dioxide 23 mmol/L (22-30); Chloride 110 mmol/L (98-107); Estimated Creatinine Clearance 125 ml/min; Glucose 94 mg/dl (70-99); Potassium 4.5 mmol/L (3.5-5.1); Sodium 139 mmol/L (135-145); eGFR > 60.00
[2025-04-22] MEDS: TORADOL 10 MG IV (08:27)
--- NOTE | 2025-04-22 09:32 | PHA.VAN.IN ---
Addendum entered and electronically signed by Nirali Iglesias Nelia 04/22/25 10:34:
Agree with assessment and plan.
Follow renal function closely with concomitant ketorolac
Original Note:
Assessment
- Assessment
Renal Function: Appears similar to baseline
Historical Micro: History of MRSA infection (cellulitis January 2025)
AUC Dosing Plan
- Dosing Variables
Dosing Weight (kg): 97.477
Dosing CrCl (ml/min): 109
Vd coefficient (L/kg): 0.6
- Empiric Dosing
Initial / Loading Dose: received 2000mg load at 2209 last night
Maintenance Regimen: 1250mg q12h
Estimated AUC (mcg*h/mL): 483
Estimated Peak (mcg*h/mL): 31.4
Estimated Trough (mcg/ml): 11.6
Estimated Half Life (H): 7.3
- Monitoring
No levels ordered at this time: consider within next few days
Pharmacokinetics Vancomycin I
- -
Patient Age: 40
Patient Sex: Female
Vancomycin Day #: 1
Indication: Skin And Soft Tissue
Requesting Provider: Dr. Beard
Pertinent Antimicrobial Allergies:
NKDA
Height / Weight:
Height 5 ft 5 in
Actual Weight 97.477 kg
- Vital Signs / Lab Results
Temp Pulse Resp BP Pulse Ox
98.3 F 77 16 100/58 96
04/22/25 07:48 04/22/25 07:48 04/22/25 07:48 04/22/25 07:48 04/22/25 07:48
Lab Results - Hematology
04/21/25 04/22/25
21: 06:40
WBC 11.3 H 11.2 H
Lab Results - Chemistry
04/21/25 04/22/25
21: 06:40
BUN 15 18 H
Creatinine 0.8 0.7
Estimated Creat Clear 109 125
Albumin 3.9
04/21/25 04/22/25
01:30
Lactic Acid < 0.5 L Cancelled
--- NOTE | 2025-04-22 11:02 | CM ---
Reviewed the chart notes and spoke with the patient at the bedside. The patient resides with her daughter in a second floor apartment with a flight of steps to enter. The patient reports no DME/VN/SNF in the past. The patient confirmed her
pharmacy of choice is [facility]. CM continues to be available to patient/family and is monitoring medical plan for needs at discharge.
Plan: Discharge to home when medically stable. No anticipated needs.
--- NOTE | 2025-04-22 13:12 | CON.ID ---
Consultation
-
Date/Time Consultation Requested: 04/22/2025 02:02
Date/Time Consultation Performed: 04/22/2025 1300
Requesting Provider: Dr. Beard
Performing Provider: Dr. Bruno
Reason for Consultation: Right lower abdomen cellulitis/SSTI
Chief Complaint / Past History
History of Present Illness
Shelbi Amin is a 40-year-old female being evaluated at the request of Dr. Beard in regards to the right lower abdomen SSTI. History is obtained from chart review, along with patient interview.
Patient reports that approximately 2 months ago she developed a bump on her leg which became itchy, and then progressed to pain and erythema. She presented to the hospital at that point in time and the area was lanced. Cultures revealed growth of
MRSA, and she was ultimately discharged on Bactrim and cephalexin. She reports that the area cleared up, but 1 to 2 weeks ago she developed another bump on her right lower abdomen which at first was itchy, but several days ago grew more irritating.
She was seen in the ER on 04/18. She was again discharged on Bactrim and advised to follow for resolution or improvement. She notes that over the past several days there has been no resolution and in fact the area of redness has grown in size, as
has the discomfort. She presented back to the emergency room yesterday for further evaluation. In the ER the area was attempted to be lanced, but no purulence was found. A wound culture is showing rare gram-positive cocci, though. She has been
started on empiric antibiotics. Infectious Diseases is asked to comment upon further antimicrobial therapy.
Past History
Additional Past Medical History:
Liver adenoma
Additional Past Surgical History:
Spine surgery
Tonsillectomy
Ankle surgery
Partial liver resection (2010)
Allergy History:
morphine Allergy (Verified 04/18/25 09:23)
Hives
tramadol (From Ultram) Allergy (Verified 04/18/25 09:23)
Unknown
Medications Reviewed: Yes
Current Antibiotics:
Vancomycin
Social History
Tobacco: Smoker (1-3 cig/day)
Alcohol: Other (rare)
Drug: Marijuana
Living: With Family
Employment: Employed
Family History
Family History: Not Pertinent
Review of Systems
Vital Signs
Temp Pulse Resp BP Pulse Ox
98.3 F 77 16 100/58 96
04/22/25 07:48 04/22/25 07:48 04/22/25 07:48 04/22/25 07:48 04/22/25 07:48
Physical Exam
Physical Exam
Constitutional: No Acute Distress, Comfortable and Non-toxic
Eyes: No Conjunctival Hemorrhage and Sclera Anicteric
Oral: No Thrush and No Ulcers
Cardiovascular: S1/S2 and S3/S4
Pulmonary: Clear and Non Labored; Negative Wheezes, Rales or Rhonchi
Gastrointestinal: Soft, Tender (right lower abdomen with 5cm diameter area of erythema. central 1cm surgical wound. No drainage.), Non Distended and Normal Bowel Sounds
Skin: Warm and Dry; Negative Rash
Neurological: Awake and Alert
Psychological: Calm
Lab / Diagnostic Study Results
04/22/25 06:40
04/22/25 06:40
Abs Immat Gran (auto) 0.0 10^3/uL (0-0.05) 04/21/25 21:25
Absolute Neuts (auto) 7.6 10^3/uL (1.4-6.5) H 04/21/25 21:25
Absolute Lymphs (auto) 2.4 10^3/uL (1.2-3.4) 04/21/25 21:25
Absolute Monos (auto) 0.8 10^3/uL (0.1-0.6) H 04/21/25 21:25
Absolute Basos (auto) 0.1 10^3/uL (0-0.2) 04/21/25 21:25
Immature Gran % 0.2 % (0-0.5) 04/21/25 21:
Neutrophils % 67.3 % (42.2-75.2) 04/21/25:
Lymphocytes % 21.0 % (20.5-51.1) 04/21/25:
Monocytes % 7.4 % (1.7-9.3) 04/21/25:
Eosinophils % 3.6 % (0-6) 04/21/25:
Basophils % 0.5 % (0-2) 04/21/25 21:
Lactic Acid Cancelled 04/22/25 01:30
Microbiology Results
Micro:
04/22/25 00:43 Wound Culture - Pending
Abdomen Gram Stain - Preliminary
04/21/25 21:25 Blood Culture - Pending
Blood/Venous
04/21/25 21:25 Blood Culture - Pending
Blood/Venous
Wound/abscess/other Cult Final 02/24/25
Moderate Presumptive Staph aureus MRSA
Isolation Precautions Required
Called to [id number] on 02/26/25 at 1012 by [facility]
Organism 1 Staph aureus MRSA
1. Staph aureus MRSA
M.I.C. RX
--------- ---
Amoxicillin/Potas. Clavulanate <=4/2 R
Ampicillin 8 R
Clindamycin <=0.5 R
Gentamicin 8 I
Erythromycin >4 R
Levofloxacin 4 I
Oxacillin >2 R
Tetracycline <=4 S
Trimethoprim/Sulfamethoxazole <=0.5/9.5 S
Vancomycin 1 S
Assessment / Plan
Suspected MRSA SSTI (recurrent)
Leukocytosis
Recommendations:
Wound cultures revealed growth of gram-positive cocci. Full identification and susceptibilities pending, but based upon prior cultures this is likely MRSA.
Will transition to oral linezolid 6 mg p.o. BID for 7 to 10 days.
Local care to the area.
Patient has been instructed on skin decolonization with the use of chlorhexidine soap. (BID x 5 days)
Will follow-up in the office should there be recurrence.
Care Review
Plan reviewed with: Physician (Hospitalist)
Total Time Spent with Patient (in minutes): Hospitalist
--- NOTE | 2025-04-22 13:59 | W.DCSUMMARY ---
Discharge Summary
Discharge Data
Date of Admission: 04/22/25
Date of Discharge: 04/22/25
Total time spent discharging patient (in min): 40
-
Pending Results: No
Hospital Course
Hospital course
Patient is a 40y F with PMH significant for MRSA cellulitis in January who presents to ED complaining of redness and pain of the abdominal wall for the past week or so. Patient noted a small 'bump' on the lower abdomen about one week ago. Since
that time she has developed surrounding redness, pain and swelling. She was seen here in the ED two days ago where POC US showed no evidence of fluid collection / abscess. She was discharged to home on Bactrim DS BID; however, her symptoms have
only progressed since that time.
Patient was admitted for R thigh cellulitis in January. Cultures were taken at that time which were positive for MRSA. She has no other prior h/o MRSA infections.
Patient started vancomycin, seen by infectious disease recommending oral linezolid.
During hospitalization patient was treated from the following
Abdominal Wall Cellulitis / Abscess
- Admit for further evaluation and treatment.
- Suspect MRSA abscess / cellulitis given prior / recent history.
- IV vancomycin for now.
- Follow-up any available culture data (no significant fluid obtained with attempted I&D in the ED this evening).
- Follow for clinical improvement.
- ID evaluation for additional recommendations / strategies for future prevention, etc.
- Consider Surgery eval for drainage if no significant improvement with abx alone.
04/22
Patient started vancomycin, seen by infectious disease recommending oral linezolid.
Discharge home today
Sepsis secondary to cellulitis.
Meets sepsis criteria with leukocytosis and tachycardia above 90.
Continue antibiotics.
Obesity BMI 35.8
CODE STATUS: Full code
DVT prophylaxis: Lovenox
Diet: Regular diet
Disposition: Discharge home today
Total time spent on today's encounter was 40 minutes which included time spent in counseling the patient/family regarding diagnosis and treatment plan as listed above, goals of care, and symptom management. Case was discussed with nursing staff,
specialists, and care coordinators/case management. All labs and imaging personally reviewed by me. Remainder the time spent in detailed review of previous records, lab data, imaging, and other medical provider documentation.
Anticipated Discharge: Today
Discharge Plan
-
Patient Disposition: Home (Routine Discharge)
Discharge Diagnosis/Procedures: Abdominal wall cellulitis
Diet: As tolerated and Regular
Activity: As tolerated
Bathing Restrictions: OK to Shower
Stand Alone Forms: Return to Work
Referrals:
Tashi Bruno, [Active, Infectious Diseases] - As needed
Jesus Calhoun MD [Family Provider, [facility]]
Additional Discharge Medication Instructions: skin decolonization with the use of chlorhexidine soap. (BID x 5 days)
Will follow-up in ID office if any recurrence.
Prescriptions:
New
linezolid 600 mg Tablet
600 mg PO BID 7 Days Qty: 14 0RF
Continued
omeprazole 20 mg Tablet,Delayed Release (Dr/Ec)
20 - 40 mg PO DAILY
Discontinued
sulfamethoxazole-trimethoprim [Bactrim DS] 800-160 mg tablet
1 tab PO Q12H Qty: 20 0RF
Discharge Orders:
Discharge Patient (As Directed); Ordered 04/22/25
Ordered By: Teri Benites
Discharge Date and Time
Print Language: MALAY
[2025-04-22] MEDS: ZYVOX 600 MG PO (14:29)
[2025-04-22 14:35] VITALS: BP 117/75
== END 2025-04-22 15:08 | disposition home or self-care (01) | DRG 854 ==
LOC: 2 NORTH 01:38
PROVIDERS: Emergency Medicine; ADMITTING PHYSICIAN Hospitalist; ATTENDING PHYSICIAN General Practice; CONSULT PHYSICIAN Internal Medicine Infectious Disease; EMERGENCY PHYSICIAN Emergency Medicine; FAMILY PHYSICIAN Family Medicine
PROC: 0W9F0ZX Drainage of Abdominal Wall, Open Approach, Diagnostic (ICD-10-PCS; 2025-04-21)
DX: A41.9 Sepsis, unspecified organism (principal); L03.115 Cellulitis of right lower limb; L03.311 Cellulitis of abdominal wall; Z68.35 Body mass index [BMI] 35.0-35.9, adult; E66.9 Obesity, unspecified; F17.210 Nicotine dependence, cigarettes, uncomplicated
CPT/HCPCS: 10060; 74177; 80048; 80053; 83605; 84703; 85025; 85027; 87040; 87070; 87147; 87186; 87205; 94760; 96365; 96366; 96375; 99285; Q9967